=== PATIENT | female | born 1980 | race Caucasian/White ===

== ENCOUNTER 2019-12-01 12:47 | Emergency (ER) | payer MEDICAID, SELFPAY ==
[2019-12-01 12:50] VITALS: BP 147/101; RESP 16; TEMP 37; O2SAT 97; BMI 34.9
--- NOTE | 2019-12-01 12:59 | ED_ITS ---
Entered by Rowena Stone, acting as scribe for Alissa Antunez MD HPI - SOB/Dyspnea General: Chief Complaint: Shortness of Breath/Dyspnea Stated Complaint: congested Time Seen by Provider: 12/01/19 13:00 Source: patient Mode of arrival: ambulatory Limitations: no limitations History of Present Illness: HPI Narrative: 39 yo female presents to ED with complaints of shortness of breath and a cough. The patient states this began 5 days ago. MD elicited complaint: shortness of breath and cough Pertinent past history: COPD and asthma Onset (ago): day(s) (5) Context: other (heavy smoker, COPD, asthma, emphysema) Timing: progressively worsening Severity: severe Exacerbating factors: coughing, inspiration and smoke Relieving factors: nothing Known history of: COPD, asthma and other (emphysema) Associated symptoms: Reports chest congestion and cough; Deny abdominal pain, chest pain, fever(s), nausea, polyuria or vomiting Treatment prior to arrival: other (inhaler, nebulizer) Related Data: Home oxygen amount: none Review of Systems Const: Denies: fever or chills Eyes: Denies: change in vision ENMT: Denies: throat pain or mouth pain Card: Denies: chest pain Resp: Reports: chest congestion GI: Denies: abdominal pain, nausea, vomiting or diarrhea : Denies: difficulty urinating Musc: Denies: back pain or joint pain Skin/Breast: Denies: rash Neuro: Denies: headache or behavioral changes Psych: Denies: depression Endo: Denies: excessive urination Radhames/Lymph: Denies: easy bruising All/Imm: Denies: hives PFSH ED PFSH: Statuses (acute, chronic, etc) shown below reflect problem list status as previously entered and may not be historically accurate Social History Smoking and tobacco status: current every day smoker Physical Exam Const: COMMON NORMALS: no apparent distress and healthy appearing HENMT: COMMON NORMALS: normocephalic and external nose normal HEAD & SCALP: normocephalic NOSE: external nose normal and no nasal discharge (nasal dischage) Eye: COMMON NORMALS: PERRL PUPIL: Yes PERRL Neck/C-Spine: COMMON NORMALS: full ROM and no lymphadenopathy Chest: COMMONS NORMALS: inspection of chest normal Resp: COMMON NORMALS: normal respiratory effort AUSCULTATION: wheezes Cardio: COMMON NORMALS: regular rate and regular rhythm RATE: regular rate RHYTHM: regular rhythm GI: COMMON NORMALS: soft to palpation PALPATION: Yes soft Extremity: COMMON NORMALS: normal to inspection, full ROM and normal capillary refill Psych: COMMON NORMALS: mental status grossly normal and cooperative Skin: COMMON NORMALS: no rashes or lesions noted GENERAL SKIN EXAM: no rashes or lesions noted Course Vital Signs: Vital signs: Vital Signs Temperature 98.6 F 12/01/19 12:50 Pulse Rate 105 H 12/01/19 14:14 Respiratory Rate 18 12/01/19 14:14 Blood Pressure 107/90 12/01/19 14:14 Pulse Oximetry 95 12/01/19 14:14 MDM - SOB/Dyspnea MDM Narrative: Medical decision making narrative: Patient presents here with congestion and likely bronchitis. Patient instructed on smoking cessation. Patient is well-appearing here and will discharge on steroids and antibiotics. Patient is return if worsening. Lab Data: Labs: Lab Results 12/01/19 Range/Units 13:15 Influenza Type A A g Negative (Negative) POC Influenza B Ag Negative (Negative) Imaging Data^: CXR: Attestation: I personally reviewed and interpreted this imaging study as follows: My impression: no acute abnormality Discharge Plan Discharge Patient Disposition: Home, Self-Care Clinical Impression: Bronchitis Condition: Stable Prescriptions: New Keflex 500 mg capsule 500 mg PO Q6H 7 Days Qty: 28 RF: 0 prednisone 50 mg tablet 50 mg PO DAILY Qty: 5 RF: 0 Discharge Orders: Discharge Order (Routine); Ordered 12/01/19 Ordered By: Alissa Antunez Referrals: Kush Amin MD [Family Provider] - 4-7 days Discharge Diet: Advance as tolerated Discharge Activity: Resume usual activity Patient Instructions: Acute Bronchitis (ED) Discharge Date/Time: 12/01/19 14:15 Coding Level of Care Code ED Licensed Funeral Director And Embalmer for Chg Fwd The documentation recorded by the Bertha yap Valerie R, accurately reflects the service I personally performed and the decisions made by Harmony cunningham Korby, MD Dec 01, 2019 12:47
--- NOTE | 2019-12-01 13:09 | XRR_ITS ---
PROCEDURE INFORMATION: Exam: XR Chest, 2 Views Exam date and time: 12/01/2019 1:10 PM Age: 39 years old Clinical indication: Patient HX: Per PT cough and congestion sine Tuesday TECHNIQUE: Imaging protocol: XR of the chest Views: 2 views. COMPARISON: CR Chest 2 views* [id number] 09/28/2015 6:29 PM FINDINGS: Lungs: Nonspecific ill-defined opacities at the left lung base. Pleural space: Unremarkable. No pleural effusion. No pneumothorax. Heart/Mediastinum: Unremarkable. No cardiomegaly. Bones/joints: Unremarkable. XR/XR chest 2V* [id number] IMPRESSION: There are ill-defined opacities at the left lung base. These are nonspecific. Differential includes scarring and/or atelectasis. Consider CT scan for further evaluation if clinically warranted.
[2019-12-01 13:16] VITALS: O2SAT 96
[2019-12-01] MEDS: predniSONE 20 mg Tablet 60 MG PO (13:28)
[2019-12-01 13:30] VITALS: O2SAT 96
[2019-12-01 13:36] VITALS: PULSE 99; RESP 17; O2SAT 96
[2019-12-01] MEDS: ipratropium-albuterol 3 mL Neb INHALATION (13:36)
[2019-12-01 13:39] VITALS: PULSE 104
[2019-12-01 14:01] LABS: Influenza A by IFA Negative (Negative)
[2019-12-01 14:02] LABS: Influenza B by IFA Negative (Negative)
[2019-12-01 14:14] VITALS: BP 107/90; PULSE 105; RESP 18; O2SAT 95
== END 2019-12-01 14:15 | disposition home or self-care (01) ==
LOC: ER 14:18
PROVIDERS: Emergency Provider Emergency Medicine; Family Provider Family Medicine
DX: J40 Bronchitis, not specified as acute or chronic (principal); F17.210 Nicotine dependence, cigarettes, uncomplicated
CPT/HCPCS: 71046; 87804; 94640; 99282; J7512; J7611

== ENCOUNTER → 2020-05-08 10:33 | Outpatient (BNVA) | payer MEDICAID, SELFPAY | PROVIDERS: Family Provider Family Medicine; PCP Family Medicine; Visit Provider Specialist | DX: G43.709 Chronic migraine without aura, not intractable, without status migrainosus (principal) | CPT/HCPCS: 99214 ==

== ENCOUNTER → 2020-08-11 12:28 | Outpatient (BNVA) | payer MEDICAID, SELFPAY | PROVIDERS: Family Provider Family Medicine; PCP Family Medicine; Visit Provider Specialist | DX: G43.711 Chronic migraine without aura, intractable, with status migrainosus (principal); G93.5 Compression of brain; M79.7 Fibromyalgia | CPT/HCPCS: 99213 ==

== ENCOUNTER → 2020-11-12 11:59 | Outpatient (BNVA) | payer MEDICAID, SELFPAY | PROVIDERS: Family Provider Family Medicine; PCP Family Medicine; Visit Provider Specialist | DX: G43.711 Chronic migraine without aura, intractable, with status migrainosus (principal); G25.81 Restless legs syndrome; F17.210 Nicotine dependence, cigarettes, uncomplicated | CPT/HCPCS: 99214 ==

== ENCOUNTER → 2021-02-26 12:59 | Outpatient (BNVA) | payer MEDICAID, SELFPAY | PROVIDERS: PCP Family Medicine; Visit Provider Specialist | DX: G43.711 Chronic migraine without aura, intractable, with status migrainosus (principal); R20.0 Anesthesia of skin; R20.2 Paresthesia of skin; Z87.891 Personal history of nicotine dependence | CPT/HCPCS: 99213; 99214 ==

== ENCOUNTER → 2021-03-10 15:02 | Outpatient (BNVA) | payer MEDICAID, SELFPAY | PROVIDERS: PCP Family Medicine; Visit Provider Specialist | DX: R20.0 Anesthesia of skin (principal); R20.2 Paresthesia of skin; M79.7 Fibromyalgia; Z87.891 Personal history of nicotine dependence | CPT/HCPCS: 95910 ==

== ENCOUNTER → 2021-03-19 12:39 | Outpatient (BNVA) | payer MEDICAID, SELFPAY | PROVIDERS: PCP Family Medicine; Visit Provider Specialist | DX: G43.709 Chronic migraine without aura, not intractable, without status migrainosus (principal); M79.7 Fibromyalgia; G25.81 Restless legs syndrome; Z87.891 Personal history of nicotine dependence | CPT/HCPCS: 64615; 99213; J0585 ==

== ENCOUNTER → 2021-06-11 12:27 | Outpatient (BNVA) | payer MEDICAID, SELFPAY | PROVIDERS: PCP Family Medicine; Visit Provider Specialist | DX: G43.709 Chronic migraine without aura, not intractable, without status migrainosus (principal); Z87.891 Personal history of nicotine dependence | CPT/HCPCS: 64615; J0585 ==

== ENCOUNTER → 2021-09-03 11:29 | Outpatient (BNVA) | payer MEDICAID, SELFPAY | PROVIDERS: PCP Family Medicine; Visit Provider Specialist | DX: G43.709 Chronic migraine without aura, not intractable, without status migrainosus (principal); Z87.891 Personal history of nicotine dependence | CPT/HCPCS: 64615; J0585 ==

== ENCOUNTER → 2021-12-15 12:54 | Outpatient (BNVA) | payer MEDICAID, SELFPAY | PROVIDERS: PCP Family Medicine; Visit Provider Specialist | DX: G43.711 Chronic migraine without aura, intractable, with status migrainosus (principal); G93.5 Compression of brain; M79.7 Fibromyalgia; Z87.891 Personal history of nicotine dependence | CPT/HCPCS: 64615; J0585 ==

== ENCOUNTER → 2022-06-03 07:36 | Outpatient (BNVA) | payer MEDICAID, SELFPAY | PROVIDERS: PCP Family Medicine; Visit Provider Specialist | DX: G43.711 Chronic migraine without aura, intractable, with status migrainosus (principal) | CPT/HCPCS: 64615; J0585 ==

== ENCOUNTER → 2022-10-25 07:58 | Outpatient (BNVA) | payer MEDICAID, SELFPAY | PROVIDERS: PCP Family Medicine; Visit Provider Specialist | DX: G43.711 Chronic migraine without aura, intractable, with status migrainosus (principal) | CPT/HCPCS: 64615 ==

== ENCOUNTER 2023-01-21 10:16 | Outpatient (CLI) | payer MEDICAID, SELFPAY ==
--- NOTE | 2023-01-21 10:27 | FL_ITS ---
WS: [id number] FL barium swallow modifd [id number] REASON FOR EXAM: Other dysphagia FLUOROSCOPY TIME: 2min [id number] # OF SPOT FILMS: 2 FINDINGS: Examination was supervised by the speech therapy department. With the patient in the upright sitting position, the swallowing of multiple consistencies of barium was monitored and recorded fluoroscopically from the lateral projection. Detailed analysis and report will be rendered by the speech therapy department. FL/FL barium swallow modifd [id number] IMPRESSION: Modified barium swallow as above.
== END 2023-01-21 10:17 | disposition home or self-care (01) ==
PROVIDERS: PCP Family Medicine; Visit Provider Electrodiagnostic Medicine
DX: R13.19 Other dysphagia (principal)
CPT/HCPCS: 74230; 92611

== ENCOUNTER 2023-01-25 10:27 | Outpatient (CLI) | payer MEDICAID, SELFPAY ==
--- NOTE | 2023-01-25 10:35 | FL_ITS ---
WS: [email or web address] EXAMINATION: MS upper GI series [id number] REASON FOR EXAM: ESOPHAGEAL DYSPHAGIA COMPARISON: None available. ORDER DATE: 01/25/2023 10:47 AM TECHNIQUE: The patient drank a thick barium sulfate suspension w gas granules. Fluoroscopy with digital x-ray imaging performed. FINDINGS: There was residual contrast within the colon prior swallowing study which did not impact this study. Esophagus: The swallowing mechanism was shown to be normal at fluoroscopy. The esophagus showed norm al configuration and motion with intact mucosa. There is no hiatus hernia or gastroesophageal reflux. Stomach: The stomach is normal size and distensibility. The gastric rugal folds are of normal caliber except in the prepyloric distal antrum there appears to be mild fold thickening without discrete ulc erations. There was a significant delay in gastric emptying. Duodenum: The duodenal bulb is normal in size and shape. The duodenal sweep is unremarkable. Previous cholecystectomy. FL/FL upper GI series [id number] IMPRESSION: Mild distal antritis with fold thickening in the distal antrum. FLUOROSCOPY TIME: 2min [id number] # OF SPOT FILMS: 4
== END 2023-01-25 10:28 | disposition home or self-care (01) ==
LOC: RAD 10:30
PROVIDERS: PCP Family Medicine; Visit Provider Electrodiagnostic Medicine
DX: R13.19 Other dysphagia (principal); Z90.49 Acquired absence of other specified parts of digestive tract
CPT/HCPCS: 74240

== ENCOUNTER 2023-08-05 14:36 | Outpatient (CLI) | payer MEDICAID, SELFPAY ==
--- NOTE | 2023-08-05 14:50 | MM_ITS ---
WS: [id number] BILATERAL 3D TOMOSYNTHESIS DIGITAL SCREENING MAMMOGRAPHY WITH CAD CLINICAL INFORMATION: SCREENING HISTORY: Screening mammogram. No current complaints. COMPARISON: Baseline TECHNIQUE: Bilateral CC and MLO views. FINDINGS: Scattered fibroglandular densities bilaterally. No suspicious focal mass, asymmetry, calcifications, or architectural distortion. No evidence of malignancy. IMPRESSION: MM/[place] [id number] BI-RADS: 1-Negative FOLLOW UP: 1 Year Follow-up Recommend return to annual screening mammography.
== END 2023-08-05 14:37 | disposition home or self-care (01) ==
LOC: RAD 14:39
PROVIDERS: PCP Family Medicine; Visit Provider Family Medicine
DX: Z12.31 Encounter for screening mammogram for malignant neoplasm of breast (principal)
CPT/HCPCS: 77063; 77067

== ENCOUNTER → 2024-01-19 13:56 | Outpatient (BNVA) | payer MEDICAID, SELFPAY | PROVIDERS: PCP Family Medicine; Visit Provider Specialist | DX: G44.84 Primary exertional headache (principal); G43.711 Chronic migraine without aura, intractable, with status migrainosus; G93.5 Compression of brain | CPT/HCPCS: 99215 ==

== ENCOUNTER 2024-02-28 15:40 | Outpatient (CLI) | payer MEDICAID, SELFPAY ==
--- NOTE | 2024-02-28 16:00 | MR_ITS ---
WS: [id number] MRI HEAD WITHOUT CONTRAST TECHNIQUE: Sagittal T1, T2 axial, T2 axial FLAIR, axial and coronal T1 images, axial susceptibility w eighted imaging, axial diffusion weighted images, and coronal T2 images were obtained. 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 Normal fourth ventricle. No hydrocephalus. No other suspicious intracranial signal abnormalities. Normal vascular flow voids at the skull base. No extra-axial fluid collections. No evidence of mass or mass effect. Paranasal sinuses are well aera linda. Mild mucosal thickening in the RIGHT sphenoid sinus. Mastoid air cells are well aerated. No hemo siderin on the susceptibility weighted images. Normal optic chiasm and pituitary infundibulum. Tempor al lobes and hippocampal formations are normal in appearance. IMPRESSION: 1. 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 No hydrocephalus. Normal fourth ventricle. Mild crowding at the foramen magnum unchanged. 2. No suspicious intracranial signal abnormalities. 3. No hemosiderin on the susceptibly weighted images. 4. Temporal lobes and hippocampal formations are normal in appearance.
--- NOTE | 2024-02-28 16:45 | MR_ITS ---
WS: [email or web address] MRA HEAD TECHNIQUE: Axial 3-D TOF images obtained with axial images and axial, sagittal, and coronal 2-D refor matted images. CLINICAL INFORMATION: R51.9 - Headache, unspecified COMPARISON: None. FINDINGS: Distal vertebral arteries are patent. Basilar artery is patent. Normal vascularity to the INTER[employer] MARKETER territo ry bilaterally. Somewhat small but normal basilar artery with anterior dominant circulation. Patent s mall posterior communicating arteries. Both ICAs are patent at the skull base. Normal vascularity to the BRYAN and MCA territories bilaterally . No evidence of proximal flow-limiting stenosis or aneurysm. IMPRESSION: 1. No evidence of flow-limiting stenosis or aneurysm. 2. Normal variant anterior dominant circulation with somewhat small basilar artery which is patent. Small patent posterior communicating arteries. 3. Otherwise unremarkable intracranial MRA.
== END 2024-02-28 15:41 | disposition home or self-care (01) ==
LOC: RAD 15:41
PROVIDERS: PCP Family Medicine; Visit Provider Specialist
DX: G44.84 Primary exertional headache (principal)
CPT/HCPCS: 70544; 70551

== ENCOUNTER 2025-04-16 14:02 | Outpatient (CLI) | payer MEDICAID, SELFPAY ==
--- NOTE | 2025-04-16 14:07 | MM_ITS ---
WS: [email or web address] BILATERAL 3D TOMOSYNTHESIS DIGITAL SCREENING MAMMOGRAPHY WITH CAD CLINICAL INFORMATION: SCREENING HISTORY: Screening mammogram. No current complaints. COMPARISON: 2022 TECHNIQUE: Bilateral CC and MLO views. FINDINGS: Scattered fibroglandular densities bilaterally. No suspicious focal mass, asymmetry, calcifications, or architectural distortion. No evidence of malignancy. MM/MM scr BI tomosynthesis [id number] IMPRESSION: DENSITY: There are scattered areas of fibroglandular density. BI-RADS: 1 - Negative. FOLLOW UP: 1 Year Follow-up Recommend return to annual screening mammography.
== END 2025-04-16 14:03 | disposition home or self-care (01) ==
PROVIDERS: PCP Family Medicine; Visit Provider Family Medicine
DX: Z12.31 Encounter for screening mammogram for malignant neoplasm of breast (principal); R92.323 Mammographic fibroglandular density, bilateral breasts
CPT/HCPCS: 77063; 77067

== ENCOUNTER 2025-05-31 17:53 | Emergency (ER) | payer MEDICAID, SELFPAY ==
--- NOTE | 2025-05-31 17:58 | ECG_ITS ---
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 Measurements Intervals [place] Rate: 94 P: 52 CA: 144 QRS: 38 QRSD: 92 T: 44 QT: 382 QTc: 478 Interpretive Statements SINUS RHYTHM POSSIBLE LEFT ATRIAL ENLARGEMENT [-0.1mV P-WAVE IN V1/V2] No previous ECG available for comparison Electronically Signed On 06-01-2025 08:42:15 CDT by Albino Jones M.D. [email or web address]
--- OUTSIDE RECORDS SUMMARY | 2025-05-31 17:58 | XMS_ITS | Clinical Summary ---
Author Organization [facility] Address [address] Attn: [place] [address] Care Team Providers Care Public Health Policy Analyst Name Role Phone Unavailable Primary Care Provider Unavailabl e Allergies No known active allergies Medications HYDROcodone-acet aminophen (NORCO) 5-325 mg tablet Take 1 Tablet by mouth every 4 hours as needed for Pain, Moderate. 07/19/2016 Active sertraline (ZOLOFT) 100 mg tablet Take 150 mg by mouth daily. 07/19/2016 Active LORazepam (ATIVAN) 0.5 mg tablet Take 0.5 mg by mouth every 6 hours as needed for Anxiety. 07/19/2016 Active tiZANidine (ZANAFLEX) 2 mg Capsule Take 2 mg by mouth. 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 Gender Identity Not on file Sexual Orientation Not on file Last Filed Vital Signs Vital Sign Reading Time Taken Comments Blood Pressure 99/75 07/19/2016 3:35 PM CDT Pulse 105 07/19/2016 3:35 PM CDT Temperature - - Respiratory Rate - - Oxygen Saturation - - Inhaled Oxygen Concentration - - Weight 95.3 kg (210 lb) 07/19/2016 3:35 PM CDT Height 165.1 cm (5' 5 ) 07/19/2016 3:35 PM CDT Body Mass Index 34.95 07/19/2016 3:35 PM CDT Plan of Treatment Health Maintenance Due Date Last Done Comments HPV VACCINES (1 - 3-dose series) 1995 DTAP/TDAP/TD VACCINES (1 - Tdap) 1999 HEPATITIS B VACCINES (1 of 3 - 19+ 3-dose series) 07/1999 HPV/Cotest (21-29) 2001 CERVICAL CANCER SCREENING 2010 HPV/Cotest (30-65) 2010 PAP SMEAR 2010 BREAST CANCER SCREENING 2020 INFLUENZA VACCINE (#1) 2025
--- OUTSIDE RECORDS SUMMARY | 2025-05-31 17:58 | XMS_ITS | Clinical Summary ---
Author Organization [facility] Address [address] [place] [address] Phone Care Team Providers Care Cath Lab Technologist Name Role Phone Unavailable Primary Care Provider Unavailabl e Allergies No known active allergies Medications sertraline (ZOLOFT) 100 mg tablet Take 150 mg by mouth daily. Active HYDROcodone-acet aminophen (NORCO) 5-325 mg tablet Take 1 Tablet by mouth every 4 hours as needed for Pain, Moderate. Active tiZANidine (ZANAFLEX) 2 mg Capsule Take 2 mg by mouth. Active LORazepam (ATIVAN) 0.5 mg tablet Take 0.5 mg by mouth every 6 hours as needed for Anxiety. Active Active Problems Problem Noted Date Diagnosed Date Tobacco use 07/19/2016 Social History Tobacco Use Types Packs/Day Years Used Date Smoking Tobacco: Every Day Comments Unknown Sex and Gender Information Value Date Recorded Sex Assigned at Not on file Legal Sex Female 9:01 AM CDT Gender Identity Not on file Sexual Orientation [...] CANCER SCREENING 2020 INFLUENZA VACCINE (#1) [address] [place] [address] [place]
[2025-05-31 17:59] VITALS: BP 127/86; PULSE 91; RESP 16; TEMP 36.7; O2SAT 99
--- NOTE | 2025-05-31 18:53 | XRR_ITS ---
PROCEDURE INFORMATION: Exam: XR Chest Exam date and time: 05/31/2025 9:39 PM Age: 44 years old Clinical indication: Chest pressure; C/O chest pain TECHNIQUE: Imaging protocol: Radiologic exam of the chest. Views: 1 view. COMPARISON: CR XR chest 2V* [id number] 12/01/2019 1:45 PM FINDINGS: Lungs: Unremarkable. No consolidation. Pleural spaces: Unremarkable. No pleural effusion. No pneumothorax. Heart/Mediastinum: Unremarkable. No cardiomegaly. Bones/joints: Unremarkable. XR/XR chest 1V portable [id number] IMPRESSION: No acute findings.
[2025-05-31 19:57] LABS: Hematocrit 41.5 % (36-47); Hemoglobin 14.00 g/dL (11.27-16.99); Mean Corpuscular HGB Conc 33.7 g/dL (30-55); Mean Corpuscular Hemoglobin 32.2 pg (27-33); Mean Corpuscular Volume 95.4 fl (85-98); Nucleated Red Blood Cells % 0 %; Platelet Count 382 10^3/cmm (157-399); Red Blood Count 4.35 10^6/uL (3.85-5.65); White Blood Count 13.32 10^3/uL (3.29-11.43)
[2025-05-31 20:14] LABS: Troponin(5th) Baseline < 6 ng/L (0-10)
[2025-05-31 20:24] LABS: Alanine Aminotransferase 12 U/L (0-33); Albumin Level 4.3 g/dL (3.5-5.2); Alkaline Phosphatase 76 U/L (35-105); Anion Gap 19.0 (5-19); Aspartate Amino Transferase 14 U/L (0-32); Blood Urea Nitrogen 7 mg/dL (6-20); Calcium 9.1 mg/dL (8.5-10.5); Carbon Dioxide 26 mmol/L (22-29); Chloride 97 mmol/L (98-107); Creatinine Clr Calc Pharmacy 128.0024; Globulin 2.7 g/dL (1.3-4.6); Glucose 93 mg/dL (65-115); Osmolality Calculated 286 mOsm/kg (285-295); Potassium 3.0 mmol/L (3.5-5.1); Sodium 139 mmol/L (136-145); Total Protein 7.0 g/dL (6.6-8.7)
--- NOTE | 2025-05-31 20:53 | ECG_ITS ---
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 Measurements Intervals [place] Rate: 86 P: 53 MS: 149 QRS: 44 QRSD: 91 T: 50 QT: 400 QTc: 480 Interpretive Statements SINUS RHYTHM POSSIBLE LEFT ATRIAL ENLARGEMENT [-0.1mV P-WAVE IN V1/V2] Compared to ECG 05/31/2025 17:58:09 No significant changes Electronically Signed On 06-01-2025 08:43:23 CDT by Albino Jones M.D. [email or web address]
--- NOTE | 2025-05-31 21:40 | W.ED.CHESTPA ---
HPI - Chest Pain General: Chief Complaint: Chest Pain Stated Complaint: cp Time Seen by Provider: 05/31/25 21:21 Source: patient Mode of arrival: ambulatory Limitations: no limitations History of Present Illness: Patient is a 44-year-old female presents to ED today with complaint of left-sided chest pain. When patient points to area of discomfort she points superior left chest/left shoulder. She feels like pain is worse with stress as well as movement. She states pain has been episodic over the past several days. There is no exertional component. She is not complaining of shortness of breath. She does report history of COPD so has some degree of chronic mild dyspnea related to this. No hemoptysis. She is not complaining of PND, orthopnea, leg swelling, weight gain. No known cardiac history. MD complaint: chest pain Onset (ago): day(s) Timing of current episode: episodic Prior episodes: No Onset: during rest Pain location: other (near L shoulder) Severity: mild Relieving factors: nothing Exacerbating factors: movement and stress Associated symptoms: Reports no associated symptoms; Deny abdominal pain, dyspnea, fever(s), nausea, palpitations, syncope or vomiting Treatment prior to arrival: none Risk Factors: Coronary artery disease risk factors: none Thoracic aortic dissection risk factors: none Related Data Home Medications ?Medication ?Instructions ?Recorded ?Confirmed albuterol sulfate 90 mcg/actuation 2 inh inhalation Q6H PRN 05/08/20 01/19/24 breath activated powder inhaler desvenlafaxine 100 mg 150 mg PO DAILY 05/08/20 10/25/22 tablet,extended release 24 hr diphenhydramine HCl 25 mg capsule 25 mg PO Q6H PRN 05/08/20 01/19/24 (Benadryl) ibuprofen 600 mg tablet (IBU) 600 mg PO Q8H PRN 05/08/20 10/25/22 lorazepam 0.5 mg tablet 0.5 mg PO TID PRN 05/08/20 01/19/24 tizanidine 4 mg capsule 4 mg PO DAILY PRN 05/08/20 01/19/24 fluoxetine 10 mg capsule (Prozac) 10 mg PO DAILY 06/11/21 01/19/24 Previous Rx's ?Medication ?Instructions ?Recorded zonisamide 100 mg capsule 400 mg (4 x 100 mg) PO DAILY #120 11/12/20 (Zonegran) caps Allergies Allergy/AdvReac Type Severity Reaction Status Date / Time No Known Allergies Allergy Verified 01/19/24 14:21 Review of Systems Const: Denies: fever(s), chills, body aches, fatigue or malaise Card: Reports: chest pain; Denies: palpitations, irregular heart rhythm, edema, swelling of feet/ankles, lightheadedness, syncope, pre-syncope, dyspnea on exertion, orthopnea, leg pain with exertion or acrocyanosis Resp: Denies: dyspnea, productive cough, non-productive cough, wheezing, pain on inspiration, change in phlegm color or chest congestion GI: Denies: abdominal pain, nausea, vomiting or diarrhea : Denies: flank pain, difficulty voiding, dysuria, urinary frequency, urinary urgency or urinary hesitancy Musc: Reports: joint pain (L shoulder pain?); Denies: neck pain, back pain, extremity pain, extremity swelling, joint swelling or joint redness Neuro: Denies: headache(s), numbness in extremities, weakness in extremities, sensory changes or dizziness PFSH ED PFSH: Medical History Fibromyalgia Family History Other CAD (coronary artery disease) Cancer Diabetes Social History Smoking and tobacco/nicotine status: former use of tobacco/nicotine Quit status (tobacco/nicotine): has quit using Year quit tobacco: 2020 Physical Exam Const: COMMON NORMALS: no acute distress, average body habitus, patient oriented x3, no limitations, healthy appearing, alert and well nourished HENMT: COMMON NORMALS: normocephalic and atraumatic HEAD & SCALP: normal to inspection, normocephalic and atraumatic FACE & SINUS: normal facial exam Neck/C-Spine: COMMON NORMALS: full ROM and no lymphadenopathy GENERAL: Yes normal visual inspection, No anterior neck swelling and No submandibular swelling Chest: COMMONS NORMALS: normal inspection of the chest and normal palpation of entire chest wall Resp: COMMON NORMALS: normal respiratory effort and clear to auscultation bilaterally AUSCULTATION: clear to auscultation bilaterally Cardio: COMMON NORMALS: regular rate and regular rhythm RATE: regular rate RHYTHM: regular rhythm GI: COMMON NORMALS: Normal to inspection, nondistended, normoactive bowel sounds present, Soft to palpation, non-tender, No hepatosplenomegaly present and no masses PALPATION: Yes Soft to palpation and Yes No hepatosplenomegaly present : COMMON NORMALS: Yes no CVA tenderness BLADDER/KIDNEY EXAM: Yes no CVA tenderness Back/Pelvis: COMMON NORMALS: no CVA tenderness Extremity: COMMON NORMALS: capillary refill normal, no clubbing, cyanosis or edema, no calf tenderness and no pedal edema GENERAL: Yes normal exam except as noted Neuro: COMMON NORMALS: patient oriented x3, moves all extremities, no focal motor deficits, no sensory deficits noted and gait normal SENSORIUM/ORIENTATION: Yes alert Course Vital Signs: Vital signs: Vital Signs Temperature 98.0 F 05/31/25 17:59 Pulse Rate 93 05/31/25 22:02 Respiratory Rate 16 05/31/25 22:02 Blood Pressure 107/78 05/31/25 22:02 Pulse Oximetry 95 05/31/25 22:02 Oxygen Delivery Me thod Room Air 05/31/25 17:59 MDM - Chest Pain Medical Decision Making Patient clinically appears in no acute distress. Her vital signs are stable. No known cardiac history. History does not seem overly suspicious for ACS. Blood work including baseline troponin is unremarkable. Based on history timeline, I do not feel we need to repeat this today. Her CXR is unremarkable. Baseline and repeat EKGs were obtained and stable. Patient was recommended to follow-up with her primary care provider next week for reevaluation. Return to ED precautions discussed. Nothing on her history to suggest dissection, pulmonary embolism, pneumothorax, or other emergent or life-threatening etiology. Medical Records I reviewed the patient's medical records. Lab Data I reviewed the patient's lab results. 05/31/25 19:51 05/31/25 19:51 Laboratory Results WBC 13.32 10^3/uL (3.29-11.43) H 05/31/25 19:51 RBC 4.35 10^6/uL (3.85-5.65) 05/31/25 19:51 Hgb 14.00 g/dL (11.27-16.99) 05/31/25 19:51 Hct 41.5 % (36-47) 05/31/25 19:51 MCV 95.4 fl (85-98) 05/31/25 19:51 MCH 32.2 pg (27-33) 05/31/25 19:51 MCHC 33.7 g/dL (30-55) 05/31/25 19:51 RDW 13.2 % (12.1-15.1) 05/31/25 19:51 Plt Count 382 10^3/cmm (157-399) 05/31/25 19:51 MPV 10.2 fL (7.4-10.4) 05/31/25 19:51 Neut % (Auto) 61.3 % 05/31/25 19:51 Lymph % (Auto) 30.8 % 05/31/25 19:51 [place] % (Auto) 6.4 % 05/31/25 19:51 Eos % (Auto) 0.8 % 05/31/25 19:51 Baso % (Auto) 0.4 % 05/31/25 19:51 Neut # (Auto) 8.18 10^3/uL (1.8-7.7) H 05/31/25 19:51 Lymph # (Auto) 4.1 10^3/uL (0.8-4.8) 05/31/25 19:51 [place] # (Auto) 0.9 10^3/uL (0.2-0.9) 05/31/25 19:51 Eos # (Auto) 0.1 10^3/uL (0.0-0.8) 05/31/25 19:51 Baso # (Auto) 0.1 10^3/uL (0.0-0.1) 05/31/25 19:51 Nucleated RBC % (auto) 0 % 05/31/25 19:51 Nucleated RBCs # 0.0 /100WBC 05/31/25 19:51 Sodium 139 mmol/L (136-145) 05/31/25 19:51 Potassium 3.0 mmol/L (3.5-5.1) L 05/31/25 19:51 Chloride 97 mmol/L (98-107) L 05/31/25 19:51 Carbon Dioxide 26 mmol/L (22-29) 05/31/25 19:51 Anion Gap 19.0 (5-19) 05/31/25 19:51 BUN 7 mg/dL (6-20) 05/31/25 19:51 Creatinine 0.6 mg/dL (0.5-0.9) 05/31/25 19:51 GFR Calculation 108.6 mL/min (90-130) 05/31/25 19:51 Glucose 93 mg/dL (65-115) 05/31/25 19:51 Calculated Osmolality 286 mOsm/kg (285-295) 05/31/25 19:51 Calcium 9.1 mg/dL (8.5-10.5) 05/31/25 19:51 Total Bilirubin 0.4 mg/dL (0.15-1.2) 05/31/25 19:51 AST 14 U/L (0-32) 05/31/25 19:51 ALT 12 U/L (0-33) 05/31/25 19:51 Alkaline Phosphatase 76 U/L (35-105) 05/31/25 19:51 Troponin T Baseline < 6 ng/L (0-10) 05/31/25 19:51 Total Protein 7.0 g/dL (6.6-8.7) 05/31/25 19:51 Albumin 4.3 g/dL (3.5-5.2) 05/31/25 19:51 Globulin 2.7 g/dL (1.3-4.6) 05/31/25 19:51 XR interpretation done by ED provider, pending radiology final review Discharge Plan Discharge Patient Disposition: Home Clinical Impression: Atypical chest pain Condition: Stable Prescriptions: No Action fluoxetine [Prozac] 10 mg capsule 10 mg PO DAILY albuterol sulfate 90 mcg/actuation aerosol powdr breath activated 2 inh INHALATION Q6H PRN desvenlafaxine 100 mg tablet extended release 24 hr 150 mg PO DAILY diphenhydramine HCl [Benadryl] 25 mg capsule 25 mg PO Q6H PRN ibuprofen [IBU] 600 mg tablet 600 mg PO Q8H PRN lorazepam 0.5 mg tablet 0.5 mg PO TID PRN tizanidine 4 mg capsule 4 mg PO DAILY PRN zonisamide [Zonegran] 100 mg capsule 400 mg PO DAILY Qty: 120 4RF Rx Instructions: 2 tablets daily for 2 weeks. Take with supper. After 2 weeks take 4 tablets daily with supper. Discharge Orders: Discharge ED (Routine); Ordered 05/31/25 Ordered By: Mamta Mott Referrals: Kush Amin MD [Primary Care Provider, Family Practice] Patient Instructions: Chest Pain (DC), Patient Portal & Angel Instructions Activity Restrictions/Additional Instructions: As we discussed, your emergency workup here was unremarkable. Recommend you follow-up with primary care this week for re-evaluation. You need to return to the emergency department for worsening chest pain, shortness of breath, difficulty breathing, lightheadedness/passing out episodes, generally feeling worse or unwell, or any other concerns you may have. Print Language: Dominican Coding Level of Care Code ED Regulatory Affairs Assistant for Wilmer Etienne
[2025-05-31 22:02] VITALS: BP 107/78; PULSE 93; RESP 16; O2SAT 95
[2025-05-31 22:35] LABS: Troponin 5 2HR < 6.0 ng/L (0-10); Troponin 5 2HR Delta 0 ABS# (0-10)
== END 2025-05-31 22:01 | disposition home or self-care (01) ==
PROVIDERS: Emergency Provider Physician Assistant; PCP Family Medicine
DX: R07.89 Other chest pain (principal); Z87.891 Personal history of nicotine dependence
CPT/HCPCS: 36415; 71045; 80053; 84484; 85025; 93005; 99285

== ENCOUNTER 2025-06-13 12:20 | Inpatient (IN) | payer SELFPAY ==
--- NOTE | 2025-06-13 12:22 | ECG_ITS ---
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 Measurements Intervals [place] Rate: 70 P: 29 ID: 119 QRS: 37 QRSD: 93 T: 46 QT: 429 QTc: 463 Interpretive Statements SINUS RHYTHM WITH SHORT ID INTERVAL Compared to ECG 05/31/2025 21:29:23 Short ID interval now present Electronically Signed On 06-14-2025 13:52:08 CDT by Owen Gallardo M.D. [email or web address]
[2025-06-13 12:23] VITALS: BP 126/81; PULSE 73; RESP 18; TEMP 36.8; O2SAT 96
--- OUTSIDE RECORDS SUMMARY | 2025-06-13 12:25 | XMS_ITS | Clinical Summary ---
Author Organization [facility] Address [address] [place] [address] Phone Care Team Providers Care Assistant Manager Pt Name Role Phone Unavailable Primary Care Provider [...] INFLUENZA VACCINE (#1) [address] [place] [address] MEDICAID [place]
--- OUTSIDE RECORDS SUMMARY | 2025-06-13 12:25 | XMS_ITS | Clinical Summary ---
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
--- NOTE | 2025-06-13 12:26 | W.ED.PSYCHS ---
HPI - Psych General: Chief Complaint: Psychiatric Symptoms Stated Complaint: SI Time Seen by Provider: 06/13/25 12:22 History of Present Illness: 44-year-old female with a history of depression, PTSD, fibromyalgia and migraines who presents to the emergency room by ambulance with suicidal thoughts. She says things in life become overwhelming recently and she started thinking of killing herself. Related Data Home Medications ?Medication ?Instructions ?Recorded ?Confirmed albuterol sulfate 90 mcg/actuation 2 inh inhalation Q6H PRN 05/08/20 01/19/24 breath activated powder inhaler desvenlafaxine 100 mg 150 mg PO DAILY 05/08/20 10/25/22 tablet,extended release 24 hr diphenhydramine HCl 25 mg capsule 25 mg PO Q6H PRN 05/08/20 01/19/24 (Benadryl) ibuprofen 600 mg tablet (IBU) 600 mg PO Q8H PRN 05/08/20 10/25/22 lorazepam 0.5 mg tablet 0.5 mg PO TID PRN 05/08/20 01/19/24 tizanidine 4 mg capsule 4 mg PO DAILY PRN 05/08/20 01/19/24 fluoxetine 10 mg capsule (Prozac) 10 mg PO DAILY 06/11/21 01/19/24 Previous Rx's ?Medication ?Instructions ?Recorded zonisamide 100 mg capsule 400 mg (4 x 100 mg) PO DAILY #120 11/12/20 (Zonegran) caps Allergies Allergy/AdvReac Type Severity Reaction Status Date / Time No Known Allergies Allergy Verified 01/19/24 14:21 Review of Systems Narrative: Constitutional symptoms: Negative except as documented in HPI. Skin symptoms: Negative except as documented in HPI. Eye symptoms: Negative except as documented in HPI. ENMT symptoms: Negative except as documented in HPI. Respiratory symptoms: Negative except as documented in HPI. Cardiovascular symptoms: Negative except as documented in HPI. Gastrointestinal symptoms: Negative except as documented in HPI. Genitourinary symptoms: Negative except as documented in HPI. Musculoskeletal symptoms: Negative except as documented in HPI. Neurologic symptoms: Negative except as documented in HPI. Psychiatric symptoms: Negative except as documented in HPI. Endocrine symptoms: Negative except as documented in HPI. [facility] ED PFSH: Medical History (Updated 06/13/25 @ 13:15 by Leann Salazar MD) Fibromyalgia Family History Other CAD (coronary artery disease) Cancer Diabetes Social History Smoking and tobacco/nicotine status: former use of tobacco/nicotine Quit status (tobacco/nicotine): has quit using Year quit tobacco: 2019 Physical Exam Narrative: EXAM NARRATIVE: General: Alert. no acute distress Skin: Warm, dry Head: Normocephalic, atraumatic. Neck: Supple, trachea midline. Eye: Extraocular movements are intact. Ears, nose, mouth and throat: Oral mucosa moist. Cardiovascular: Regular rate and rhythm, Normal peripheral perfusion. Respiratory: Lungs are clear to auscultation, respirations are non-labored, breath sounds are equal, Symmetrical chest wall expansion. Gastrointestinal: Soft, Nontender, Non distended Musculoskeletal: Normal ROM, no deformity. Neurological: Alert and oriented. No focal neurological deficit observed. Psychiatric: Cooperative, depressed, expresses suicidal ideation. Course Vital Signs: Vital signs: Vital Signs Temperature 98.2 F 06/13/25 12:23 Pulse Rate 73 06/13/25 12:23 Respiratory Rate 18 06/13/25 12:23 Blood Pressure 126/81 06/13/25 12:23 Pulse Oximetry 96 06/13/25 12:23 MDM - Psych Medical Decision Making Differential diagnosis: Patient with reported depression and suicidal ideation. concerns for infection, alcohol intoxication, cardiac issues or other medical problems prior to psychiatric admission. Workup: labwork, ekg ordered to evaluate the pathologies and to clear the patient medically prior to psychiatric admission EKG: Time 1248. Rate 70. Normal sinus rhythm, No ST-T changes, no ectopy, normal DC & QRS intervals, This was reviewed and interpreted by myself the ER physician at 1255 Lab Review: Laboratory results were reviewed and interpreted by myself the emergency room physician. - Medically cleared. - EKG shows no ischemic changes. - Blood alcohol level is negative, -Tylenol and salicylate levels are negative. - Drug screen is positive for amphetamines and marijuana. - No signs of infection, urinalysis clear and white count is not elevated - No anemia. - BUN and creatinine are within normal limits. Consultation: I spoke with Dr. Berger who agrees to admission. Assessment and plan: Depression Suicidal ideation ? 96-hour hold was placed on the patient -Admission to neuropsychiatric unit for continued evaluation and treatment. - All lab work was reviewed and interpreted personally by myself, the ER physician - Evaluation and treatment of this problem were appropriate in the emergency setting Lab Data 06/13/25 12:46 06/13/25 12:46 Laboratory Results WBC 10.52 10^3/uL (3.29-11.43) 06/13/25 12:46 RBC 4.13 10^6/uL (3.85-5.65) 06/13/25 12:46 Hgb 13.40 g/dL (11.27-16.99) 06/13/25 12:46 Hct 39.2 % (36-47) 06/13/25 12:46 MCV 94.9 fl (85-98) 06/13/25 12:46 MCH 32.4 pg (27-33) 06/13/25 12:46 MCHC 34.2 g/dL (30-55) 06/13/25 12:46 RDW 13.3 % (12.1-15.1) 06/13/25 12:46 Plt Count 340 10^3/cmm (157-399) 06/13/25 12:46 MPV 10.1 fL (7.4-10.4) 06/13/25 12:46 Neut % (Auto) 73.2 % 06/13/25 12:46 Lymph % (Auto) 18.8 % 06/13/25 12:46 [place] % (Auto) 6.2 % 06/13/25 12:46 Eos % (Auto) 1.0 % 06/13/25 12:46 Baso % (Auto) 0.5 % 06/13/25 12:46 Neut # (Auto) 7.70 10^3/uL (1.8-7.7) 06/13/25 12:46 Lymph # (Auto) 2.0 10^3/uL (0.8-4.8) 06/13/25 12:46 [place] # (Auto) 0.7 10^3/uL (0.2-0.9) 06/13/25 12:46 Eos # (Auto) 0.1 10^3/uL (0.0-0.8) 06/13/25 12:46 Baso # (Auto) 0.1 10^3/uL (0.0-0.1) 06/13/25 12:46 Nucleated RBC % (auto) 0 % 06/13/25 12:46 Nucleated RBCs # 0.0 /100WBC 06/13/25 12:46 Sodium 138 mmol/L (136-145) 06/13/25 12:46 Potassium 3.2 mmol/L (3.5-5.1) L 06/13/25 12:46 Chloride 102 mmol/L (98-107) 06/13/25 12:46 Carbon Dioxide 24 mmol/L (22-29) 06/13/25 12:46 Anion Gap 15.2 (5-19) 06/13/25 12:46 BUN 3 mg/dL (6-20) L 06/13/25 12:46 Creatinine 0.6 mg/dL (0.5-0.9) 06/13/25 12:46 GFR Calculation 108.6 mL/min (90-130) 06/13/25 12:46 Glucose 116 mg/dL (65-115) H 06/13/25 12:46 Calculated Osmolality 284 mOsm/kg (285-295) L 06/13/25 12:46 Calcium 8.8 mg/dL (8.5-10.5) 06/13/25 12:46 Total Bilirubin 0.5 mg/dL (0.15-1.2) 06/13/25 12:46 AST 12 U/L (0-32) 06/13/25 12:46 ALT 11 U/L (0-33) 06/13/25 12:46 Alkaline Phosphatase 77 U/L (35-105) 06/13/25 12:46 Total Protein 6.6 g/dL (6.6-8.7) 06/13/25 12:46 Albumin 3.6 g/dL (3.5-5.2) 06/13/25 12:46 Globulin 3.0 g/dL (1.3-4.6) 06/13/25 12:46 TSH 1.77 uIU/mL (0.27-4.20) 06/13/25 12:46 HCG, Qual Negative (Negative) 06/13/25 12:33 Urine Color Yellow (Yellow) 06/13/25 12:33 Urine Appearance Clear (CLEAR) 06/13/25 12:33 Urine pH 6.5 (5-7) 06/13/25 12:33 Ur Specific [place] 1.014 (1.005-1.030) 06/13/25 12:33 Urine Protein Negative (Negative) 06/13/25 12:33 Urine Glucose (UA) Negative (Normal) 06/13/25 12:33 Urine Ketones Negative (Negative) 06/13/25 12:33 Urine Blood Trace (Negative) A 06/13/25 12:33 Urine Nitrate Negative (Negative) 06/13/25 12:33 Urine Bilirubin Negative (Negative) 06/13/25 12:33 Urine Urobilinogen 1.0 mg/dL (Negative) 06/13/25 12:33 Ur Leukocyte Esterase Negative (Negative) 06/13/25 12:33 Urine RBC 11-20 /hpf (0-2) H 06/13/25 12:33 Urine WBC 0-5 /hpf (0-5) 06/13/25 12:33 Ur Squamous Epith Cells 11-20 /hpf (0-5) H 06/13/25 12:33 Amorphous Sediment Not Reportable 06/13/25 12:33 Urine Bacteria 1+ /hpf (NONE) H 06/13/25 12:33 Hyaline Casts 1.21 /lpf 06/13/25 12:33 Salicylates < 0.3 mg/dL (3-10) L 06/13/25 12:46 Urine Opiates Screen Negative ng/mL (Negative) 06/13/25 12:33 Acetaminophen < 5.0 ug/mL (10-30) L 06/13/25 12:46 Ur Barbiturates Screen Negative ng/mL (Negative) 06/13/25 12:33 Ur Phencyclidine Scrn Negative ng/mL (Negative) 06/13/25 12:33 Ur Amphetamines Screen Negative ng/mL (Negative) 06/13/25 12:33 U Benzodiazepines Scrn Positive ng/mL (Negative) H 06/13/25 12:33 Urine Cocaine Screen Negative ng/mL (Negative) 06/13/25 12:33 U Marijuana (THC) Screen Positive ng/mL (Negative) H 06/13/25 12:33 Ethyl Alcohol < 10 mg/dL (0-10) 06/13/25 12:46 No radiology studies performed this visit Discharge Plan Discharge Patient Disposition: Admitted As Inpatient Clinical Impression: Depression, Suicidal ideation Condition: Stable Coding Level of Care Code ED Malted Milk Supervisor for Wilmer Etienne
[2025-06-13 12:57] LABS: Glucose Urine UA Negative (Normal); Nitrate Urine Negative (Negative); Specific Gravity, Urine 1.014 (1.005-1.030)
[2025-06-13 13:02] LABS: Hematocrit 39.2 % (36-47); Hemoglobin 13.40 g/dL (11.27-16.99); Mean Corpuscular HGB Conc 34.2 g/dL (30-55); Mean Corpuscular Hemoglobin 32.4 pg (27-33); Mean Corpuscular Volume 94.9 fl (85-98); Nucleated Red Blood Cells % 0 %; Platelet Count 340 10^3/cmm (157-399); Red Blood Count 4.13 10^6/uL (3.85-5.65); White Blood Count 10.52 10^3/uL (3.29-11.43)
[2025-06-13 13:02] LABS: Add Urine Microscopic? YES
[2025-06-13 13:03] LABS: PCP Screen Urine Negative (Negative)
[2025-06-13 13:04] LABS: HCG Qualitative Urine. Negative (Negative)
[2025-06-13 13:30] LABS: Alanine Aminotransferase 11 U/L (0-33); Albumin Level 3.6 g/dL (3.5-5.2); Alkaline Phosphatase 77 U/L (35-105); Anion Gap 15.2 (5-19); Aspartate Amino Transferase 12 U/L (0-32); Blood Urea Nitrogen 3 mg/dL (6-20); Calcium 8.8 mg/dL (8.5-10.5); Carbon Dioxide 24 mmol/L (22-29); Chloride 102 mmol/L (98-107); Creatinine Clr Calc Pharmacy 128.0024; Globulin 3.0 g/dL (1.3-4.6); Glucose 116 mg/dL (65-115); Osmolality Calculated 284 mOsm/kg (285-295); Potassium 3.2 mmol/L (3.5-5.1); Sodium 138 mmol/L (136-145); Thyroid Stimulating Hormone 1.77 uIU/mL (0.27-4.20); Total Protein 6.6 g/dL (6.6-8.7)
--- NOTE | 2025-06-13 13:30 | PC.NURSE ---
Pt was read her 96 hour hold rights at 1300. Security was present and pt had no concerns or questions
[2025-06-13 13:34] LABS: Acetaminophen < 5.0 ug/mL (10-30); Alcohol Level < 10 mg/dL (0-10); Salicylate < 0.3 mg/dL (3-10)
--- NOTE | 2025-06-13 14:06 | PC.NURSE ---
report called to [facility] in [facility], denies any further questions. security contacted for transport.
[2025-06-13 14:19] VITALS: BP 120/84; PULSE 93; RESP 16; TEMP 37; O2SAT 98
--- NOTE | 2025-06-13 14:47 | PC.NURSE ---
home medications placed in [facility]
[2025-06-13 19:47] VITALS: BP 106/74; PULSE 88; RESP 17; TEMP 36.8; O2SAT 97
--- NOTE | 2025-06-13 23:42 | PC.NURSE ---
Patient came up to nurses station asking about her medications. She states she takes the fluoxetine at night and duloxetine in the AM. Orders changed to reflect these times.
[2025-06-14 06:00] VITALS: BP 122/87; PULSE 84; RESP 18; TEMP 36.9; O2SAT 100
[2025-06-14 14:00] VITALS: BP 128/88; PULSE 78; RESP 16; TEMP 37.2; O2SAT 95
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
[2025-06-14 20:04] VITALS: BP 108/72; PULSE 83; RESP 17; TEMP 36.9; O2SAT 97
[2025-06-15 06:00] VITALS: BP 114/79; PULSE 93; RESP 17; TEMP 37; O2SAT 97
[2025-06-15 14:00] VITALS: BP 136/84; PULSE 68; RESP 16; TEMP 36.9; O2SAT 98
--- NOTE | 2025-06-15 17:59 | W.PM.NPUPNS ---
Subjective NPU Subjective: Patient presented today reporting that things were okay in general but she continued to report that she feels being here is not necessarily helping her. We discussed the fact that it is our desire to make sure that people come in and are discharged with functional follow-up and a clear sense of diagnosis and plan. We discussed the importance of her identifying the possible impact that marijuana might have on her situation. She denied any side effects to the medication. Mental Status Exam MSE Comments: This is an overweight versus obese white female in hospital scrubs with fair grooming adequate eye contact. No abnormal movements except for mild psychomotor retardation. Cooperative with exam in moderate distress. Speech was normal in rate rhythm and prosody. Mood described as depressed and anxious but allowed to go home. Her affect was mood congruent and restricted in range. Thought process was linear logical and goal directed. Thought content: Patient endorsed suicidal ideation leading to admission but denied current suicidal ideation or homicidal ideation. There was no evidence of delusional thinking. She did not appear to be responding to internal stimuli. She denied any auditory or visual hallucinations. Reported feeling suicidal yesterday, expressing not wanting to live anymore. Experiences anxiety and depression, feeling sad and hopeless. Anxiety worsens with too much time and not enough distraction. Uses cannabis to aid sleep and reported having bad dreams. Feels overwhelmed at work. Problems focusing and experiences racing thoughts. Attention and concentration appeared grossly intact. Her recent and remote memory appeared adequate. She was alert and oriented to person, place, time, and situation. Her insight was limited. Her judgment was poor. Her impulse control appeared limited versus impaired. Vitals/I&O/Wt Last Vital Signs Temp 98.5 F 06/15/25 20:06 Pulse 69 06/15/25 20:06 Resp 18 06/15/25 20:06 BP 134/91 06/15/25 20:06 Pulse Ox 99 06/15/25 20:06 O2 Del Method Room Air 06/15/25 20:06 Data NPU 06/13/25 12:46 06/13/25 12:46 A&P Assessment and plan 1. Suicidal ideation: 2. Major depressive disorder, recurrent: 3. PTSD (post-traumatic stress disorder): 4. History of ADHD: Plan: This is a 44-year-old white female with a long history of mental health issues and reports of a long history of trauma some addiction issues and recent challenges with her significant other who presented with suicidal ideation. Suicidal ideation present on June 13, 2025. Diagnoses of anxiety disorder. Major depressive disorder. Post-traumatic stress disorder. Attention-deficit/hyperactivity disorder. Agoraphobia have been reported. Plan Restart main medications. Further discussion regarding the circumstances around Concerta is indicated. Attempt to obtain information from individuals in the patient's [place], including [place], as part of the safety assessment. Advise to take it a day at a time. Plan to reach out to contacts and gather necessary information prior to discharge. 1. Encourage individual, group and milieu therapy. 2. Recommend sober living treatment at the highest level of care to which the patient is willing to commit. 3. Continue q-15 minute checks for safety 4. Continue current medication and consider changes as appropriate. 5. Obtain collateral information. 6. Evaluating is the backdrop of the 96-hour hold. PDMP PDMP Reviewed: Not Reviewed Involuntary Hold Information Hold Status: Legal Status: 96 Hour Hold Date/Time Hold Expires: 06/19/25 @ 12:35 Attestations U Medical Necessity Statement*: Inpatient hospitalization is medically necessary and the clinically appropriate intervention at this time. We will monitor medications and make changes as indicated. The patient's likely length of stay 3-5 days. Coding Level of Care Code Acute Code for [facility] Fwd Diagnoses Suicidal ideation R45.851 Major depressive disorder, recurrent F33.9 PTSD (post-traumatic stress disorder) F43.10 History of ADHD Z86.59
[2025-06-15 20:06] VITALS: BP 134/91; PULSE 69; RESP 18; TEMP 36.9; O2SAT 99
[2025-06-16 06:00] VITALS: BP 129/76; PULSE 86; RESP 20; TEMP 37.1; O2SAT 97; BMI 30.8
[2025-06-16 14:00] VITALS: BP 113/79; PULSE 89; RESP 16; TEMP 37.1; O2SAT 97
--- NOTE | 2025-06-16 16:21 | P.NPUPN_ITS ---
Subjective NPU 2 Subjective: Patient presented today reporting that things are going mostly better. She talked about some logistical issues related to staff but had no complaints in general. We talked about the social work team returning tomorrow and working on appropriate aftercare and consideration of discharge in the next 48 hours. She denied any side effects to her medications. Mental Status Exam 2 MSE Comments: This is an overweight versus obese white female in hospital scrubs with fair grooming adequate eye contact. No abnormal movements except for mild psychomotor retardation. Cooperative with exam in moderate distress. Speech was normal in rate rhythm and prosody. Mood described as feeling better. Her affect was mood congruent and less restricted in range. Thought process was linear logical and goal directed. Thought content: Patient denied current suicidal ideation or homicidal ideation. There was no evidence of delusional thinking. She did not appear to be responding to internal stimuli. She denied any auditory or visual hallucinations. Attention and concentration appeared grossly intact. Her recent and remote memory appeared adequate. She was alert and oriented to person, place, time, and situation. Her insight was limited. Her judgment was poor. Her impulse control appeared limited versus impaired. Vitals/I&O/Wt Last Vital Signs Temp 98.8 F 06/16/25 14:00 Pulse 89 06/16/25 14:00 Resp 16 06/16/25 14:00 BP 113/79 06/16/25 14:00 Pulse Ox 97 06/16/25 14:00 O2 Del Method Room Air 06/16/25 14:00 Weight last 48 hrs Weight 84.085 kg Data NPU 06/13/25 12:46 06/13/25 12:46 A&P Assessment and plan 1. Suicidal ideation: 2. Major depressive disorder, recurrent: 3. PTSD (post-traumatic stress disorder): 4. History of ADHD: Plan: This is a 44-year-old white female with a long history of mental health issues and reports of a long history of trauma some addiction issues and recent challenges with her significant other who presented with suicidal ideation. Suicidal ideation present on June 13, 2025. Diagnoses of anxiety disorder. Major depressive disorder. Post-traumatic stress disorder. Attention- deficit/hyperactivity disorder. Agoraphobia have been reported. Plan Restart main medications. Further discussion regarding the circumstances around Concerta is indicated. Attempt to obtain information from individuals in the patient's [place], including [place], as part of the safety assessment. Advise to take it a day at a time. Plan to reach out to contacts and gather necessary information prior to discharge. 1. Encourage individual, group and milieu therapy. 2. Recommend sober living treatment at the highest level of care to which the patient is willing to commit. 3. Continue q-15 minute checks for safety 4. Continue current medication and consider changes as appropriate. 5. Obtain collateral information. 6. Evaluating is the backdrop of the 96-hour hold. PDMP PDMP Reviewed: Not Reviewed Involuntary Hold Information 2 Hold Status: Legal Status: 96 Hour Hold Date/Time Hold Expires: 06/19/25 @ 12:35 Attestations NPU 2 Medical Necessity Statement*: Inpatient hospitalization is medically necessary and the clinically appropriate intervention at this time. We will monitor medications and make changes as indicated. The patient's likely length of stay 1-3 days. Coding Level of Care Code Acute Code for Chg Fwd Diagnoses Suicidal ideation R45.851 Major depressive disorder, recurrent F33.9 PTSD (post-traumatic stress disorder) F43.10 History of ADHD Z86.59
[2025-06-16 20:14] VITALS: BP 137/96; PULSE 89; RESP 18; TEMP 37.3; O2SAT 96
[2025-06-17 06:00] VITALS: BP 114/68; PULSE 87; RESP 18; TEMP 37; O2SAT 98
[2025-06-17 12:05] VITALS: BP 114/68; PULSE 87; RESP 18; TEMP 37; O2SAT 98
[2025-06-17 13:48] VITALS: BP 117/81; PULSE 90; RESP 16; TEMP 37.1; O2SAT 97
== END 2025-06-17 13:44 | disposition home or self-care (01) | DRG 885 ==
LOC: ER 13:26 → NP 13:53
PROVIDERS: Admitting Provider Psychiatry & Neurology Psychiatry; Emergency Provider Emergency Medicine; PCP Family Medicine; Visit Provider Psychiatry & Neurology Psychiatry
DX: F33.9 Major depressive disorder, recurrent, unspecified (principal); R45.851 Suicidal ideations; E66.9 Obesity, unspecified; F43.10 Post-traumatic stress disorder, unspecified; F90.9 Attention-deficit hyperactivity disorder, unspecified type; F41.9 Anxiety disorder, unspecified; M79.7 Fibromyalgia; Z68.30 Body mass index [BMI] 30.0-30.9, adult; Z87.891 Personal history of nicotine dependence
CPT/HCPCS: 36415; 80053; 80306; 80307; 81001; 81025; 84443; 85025; 93005; 97150; 97165; 99285; J9999